=== PATIENT | male | born 1960 | race Caucasian/White ===

== ENCOUNTER → 2017-10-28 | Outpatient (CLI) | payer OTHER ==
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
== END | disposition home or self-care (01) ==
LOC: RADCTMAIN 14:05
PROVIDERS: ATTEND Family Medicine
DX: S09.90XA Unspecified injury of head, initial encounter (principal)
CPT/HCPCS: 70450

== ENCOUNTER 2018-04-25 17:41 | Emergency (ER) | payer OTHER ==
[2018-04-25] MEDS ORDERED: SODIUM CHLORIDE 0.9% 500 ML IV STA (17:52)
[2018-04-25] MEDS ORDERED: DIPH,PERTUS(ACELL)TETVAC-LF 0.5 ML VIAL IM ONE (17:52)
[2018-04-25] MEDS ORDERED: SODIUM CHLORIDE 0.9% 1,000 ML IV STA ×2 (17:52)
[2018-04-25] MEDS ORDERED: ONDANSETRON 4 MG/2 ML VIAL IVP STA (17:52)
[2018-04-25 17:53] VITALS: TEMP 98
[2018-04-25] MEDS ORDERED: ceFAZolin IN SWFI 2 GM/20 ML SYRINGE IVP STA (17:53)
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
[2018-04-25 18:21] LABS: Basophils # (A) 0.1 k/uL (0-0.2); Basophils % (A) 1 %; Eosinophils # (A) 0.1 k/uL (0-0.7); Eosinophils % (A) 2 %; HCT 41.5 % (39.0-53.0); HGB 13.8 gm/dL (13.0-17.5); Lymphocytes # (A) 2.4 k/uL (1.0-4.8); Lymphocytes % (A) 32 %; MCH 30.6 pg (25.0-35.0); MCHC 33.3 g/dL (31.0-37.0); MCV 91.8 fL (80.0-100.0); Mean Platelet Volume 7.1; Monocytes # (A) 0.4 k/uL (0-1.0); Monocytes % (A) 5 %; Neutrophils # (A) 4.5 k/uL (1.3-7.7); Neutrophils % (A) 59 %; Platelet Count 232 k/uL (150-450); RBC 4.52 m/uL (4.30-5.90); RDW 11.9 % (11.5-15.5); WBC 7.6 k/uL (3.8-10.6)
[2018-04-25 18:30] LABS: ALT 30 U/L (21-72); AST 22 U/L (17-59); Albumin 3.5 g/dL (3.5-5.0); Alcohol <10 mg/dL; Alkaline Phosphatase 69 U/L (38-126); Anion Gap 10 mmol/L; Blood Urea Nitrogen 24 mg/dL (9-20); Carbon Dioxide 26 mmol/L (22-30); Chloride 105 mmol/L (98-107); Glucose 119 mg/dL (74-99); Potassium 4.2 mmol/L (3.5-5.1); Sodium 141 mmol/L (137-145); Total Bilirubin 0.9 mg/dL (0.2-1.3); Total Protein 5.9 g/dL (6.3-8.2)
[2018-04-25 18:34] LABS: Creatine Kinase 94 U/L (55-170)
[2018-04-25 18:37] LABS: INR 1.1 (<1.2); Prothrombin Time 10.6 sec (9.0-12.0)
[2018-04-25 18:39] LABS: Partial Thromboplastin Time 20.9 sec (22.0-30.0)
[2018-04-25 18:47] LABS: Creatine Kinase MB 1.4 ng/mL (0.0-2.4); Troponin I <0.012 ng/mL (0.000-0.034)
[2018-04-25] MEDS ORDERED: MORPHINE SULFATE 4 MG/ML SYRINGE IVP STA (19:31)
[2018-04-25 19:36] VITALS: BP 139/71; PULSE 69; RESP 16
== END 2018-04-25 19:59 | disposition short-term general hospital (02) ==
LOC: EC 17:41
DX: S62.635B Displaced fracture of distal phalanx of left ring finger, initial encounter for open fracture (principal); S62.615B Displaced fracture of proximal phalanx of left ring finger, initial encounter for open fracture; Z79.51 Long term (current) use of inhaled steroids; Z23 Encounter for immunization; Z53.8 Procedure and treatment not carried out for other reasons; W34.09XA Accidental discharge from other specified firearms, initial encounter; Y93.89 Activity, other specified
CPT/HCPCS: 99291; 96374; 96375; 96361 ×2; 90471; 36415; 93005; 86900; 86901; 80053; 82550; 82553; 84484; 85025; 85610; 85730; 86850; 80320; 73130; 90715; J2270; J0690

== ENCOUNTER → 2019-04-07 | Outpatient (CLI) | payer OTHER ==
--- NOTE | 2019-04-07 10:27 | XR ---
EXAMINATION TYPE: XR cervical spine limited DATE OF EXAM: 04/07/2019 TECHNIQUE: Frontal and lateral views of the cervical spine were obtained as well as odontoid view HISTORY: M54.2 Cervicalgia neck pain x6 weeks with frequent headaches COMPARISON: None FINDINGS: The cervical spine is visualized in its entirety from C1 thru the top of T1 level, it is s atisfactory in alignment without evidence of acute fracture or dislocation. Small anterior osteophyt es are seen at C5-C6 and C6-C7 similar to the prior 03/16/2014. The pre-vertebral soft tissue appears within normal limits. The C1-C2 articulation is within normal limits on the open mouth view. IMPRESSION: No acute fracture or malalignment is seen in the cervical spine. Mild multilevel degener ative disc disease from C5 through C7 similar in degree to the prior 2013.
== END | disposition home or self-care (01) ==
LOC: RADXRMAIN 09:35
PROVIDERS: ATTEND Family Medicine
DX: M50.322 Other cervical disc degeneration at C5-C6 level (principal)
CPT/HCPCS: 72040

== ENCOUNTER → 2019-06-18 | Outpatient (CLI) | payer OTHER ==
--- NOTE | 2019-06-18 11:57 | US ---
EXAMINATION TYPE: US venous doppler duplex LE LT DATE OF EXAM: 06/18/2019 11:36 AM COMPARISON: NONE CLINICAL HISTORY: I80.9 Phlebitis and thrombophlebitis left leg. Left knee surgery 06/11/19, bursitis left knee. Edema left lower leg SIDE PERFORMED: Left TECHNIQUE: The lower extremity deep venous system is examined utilizing real time linear array sonog shaq with graded compression, doppler sonography and color-flow sonography. VESSELS IMAGED: External Iliac Vein (EIV) Common Femoral Vein Deep Femoral Vein Greater Saphenous Vein * Femoral Vein Popliteal Vein Small Saphenous Vein * Proximal Calf Veins (* superficial vessels) Left Leg: No evidence of DVT IMPRESSION: No evidence for DVT.
== END | disposition home or self-care (01) ==
LOC: RADUSWWP 11:12
PROVIDERS: ATTEND Orthopaedic Surgery
DX: M25.562 Pain in left knee (principal); M70.42 Prepatellar bursitis, left knee; I80.9 Phlebitis and thrombophlebitis of unspecified site; Z87.891 Personal history of nicotine dependence

== ENCOUNTER → 2021-01-11 | Outpatient (CLI) | payer OTHER ==
--- NOTE | 2021-01-11 10:56 | XR ---
EXAM TYPE: LUMBAR SPINE X RAY SERIES COMPARISON: NONE HISTORY: Low back pain TECHNIQUE: 4 views are submitted. FINDINGS: Alignment is anatomic. The pedicles are intact. The transverse processes are intact. There is slig ht anterolisthesis L5 on S1 with facet arthropathy. Multilevel mild degenerative disc disease and hyp ertrophic changes predominantly involving the thoracolumbar junction and upper lumbar spine. IMPRESSION: 1. Multilevel hypertrophic and degenerative changes. 2. Facet arthropathy with grade 1 anterolisthesis L5 on S1.
== END | disposition home or self-care (01) ==
LOC: RADXRMAIN 10:09
PROVIDERS: ATTEND Family Medicine
DX: M47.816 Spondylosis without myelopathy or radiculopathy, lumbar region (principal); M43.17 Spondylolisthesis, lumbosacral region
CPT/HCPCS: 72110

== ENCOUNTER → 2021-11-06 | Outpatient (CLI) | payer OTHER ==
--- NOTE | 2021-11-07 08:46 | XR ---
EXAM TYPE: LUMBAR SPINE X RAY SERIES COMPARISON: 01/11/2021 HISTORY: Pain TECHNIQUE: 4 views are submitted. FINDINGS: Alignment is anatomic. The pedicles are intact. The transverse processes are intact. There is ther e is multilevel hypertrophic and degenerative change of the spine with grade 1 anterolisthesis L5 on S1. Severe facet arthropathy L5-S1. Diffuse osteopenia. Extensive retained fecal debris within the ri ght colon. IMPRESSION: 1. Diffuse osteopenia with multilevel moderate degenerative disc disease. Severe facet arthropathy L5 -S1 with probable foraminal encroachment and grade 1 anterolisthesis. Follow-up MRI recommended. 2. Correlate for constipation.
== END | disposition home or self-care (01) ==
LOC: RADXRMAIN 16:30
PROVIDERS: ATTEND Nurse Practitioner Family
DX: M51.36 Other intervertebral disc degeneration, lumbar region (principal); M47.817 Spondylosis without myelopathy or radiculopathy, lumbosacral region; M85.88 Other specified disorders of bone density and structure, other site; M43.16 Spondylolisthesis, lumbar region
CPT/HCPCS: 72110

== ENCOUNTER → 2024-05-13 | Outpatient (CLI) | payer OTHER ==
--- NOTE | 2024-05-13 09:26 | US ---
EXAMINATION TYPE: US abdomen limited DATE OF EXAM: 05/13/2024 COMPARISON: NONE CLINICAL INDICATION: Male, 63 years old with history of K42.9 UMBILICAL HERNIA WITHOUT OBSTRUCTION OR GANG; Lump above umbilicus. TECHNIQUE: Grayscale with or without color Doppler imaging of the area of hernia concern. Real-time scanning was performed by the [employer] utilizing Valsalva and additional dynamic maneuve rs to assess for hernia. Images of the contralateral side were also acquired for direct comparison. FINDINGS: Outpouching of fatty contents to the abdominal wall noted superior to the umbilicus. Assess for hernia at location of: Above umbilicus. IMPRESSION: Ventral wall hernia containing fat. [facility], , 05/13/2024 9:24 AM
== END | disposition home or self-care (01) ==
LOC: RADUSWWP 07:11
PROVIDERS: ATTEND Family Medicine
CPT/HCPCS: 76705

== ENCOUNTER → 2024-10-12 | Outpatient (CLI) | payer OTHER ==
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
== END | disposition home or self-care (01) ==
LOC: RADCTMAIN 12:44
PROVIDERS: ATTEND Orthopaedic Surgery
DX: M47.26 Other spondylosis with radiculopathy, lumbar region (principal); M51.16 Intervertebral disc disorders with radiculopathy, lumbar region; M48.061 Spinal stenosis, lumbar region without neurogenic claudication; M99.73 Connective tissue and disc stenosis of intervertebral foramina of lumbar region
CPT/HCPCS: 72131

== ENCOUNTER → 2024-11-11 | Outpatient (CLI) | payer OTHER ==
[2024-11-11 13:20] VITALS: BP 143/85; PULSE 93; RESP 16
--- NOTE | 2024-11-11 13:51 | P.PAINCN ---
History of Present Illness - History of Present Illness This is a 64-year-old pleasant gentleman who has been having low back pain for many years which is gradually getting worse for the last 1 year. No history of trauma or accident. Pain is located mostly in the low back and going down to bilateral lower extremity up to calf area. He describes his the pain as intermittent and sharp in character. Intensity goes up to 9/10. Getting up from sitting position hurts him the most. Medication makes his pain in little tolerable. Denies any motor weakness. Denies any sensory dysfunction. Denies any bowel bladder dysfunction. Patient had epidural steroid injections done more than a year ago without significant improvement in another facility. Patient is going through physical therapy. Medication mckinnon taking tramadol, gabapentin, Flexeril, trazodone. Past Medical History Past Medical History: Hearing Disorder / Deafness Additional Past Medical History / Comment(s): Deaf in right ear. History of Any Multi-Drug Resistant Organisms: None Reported Past Surgical History: Orthopedic Surgery Additional Past Surgical History / Comment(s): Sinus surgery, left hand surgery, colonoscopy X2-3, polypectomy with first colonoscopy. Past Anesthesia/Blood Transfusion Reactions: No Reported Reaction Smoking Status: Former smoker - Past Family History Sister(s) Family Medical History: Cancer Additional Family Medical History / Comment(s): Breast cancer. Medications and Allergies Home Medications Medication Instructions Recorded Confirmed Type Fluticasone Propionate [Flonase 2 spray NASAL QAM 12/06/14 11/11/24 History Allergy Relief] Cyclobenzaprine [Flexeril] 10 mg PO TID PRN 09/18/22 11/11/24 History Diclofenac Potassium [Cataflam] 50 mg PO TID PRN 09/18/22 11/11/24 History LORazepam [Ativan] 0.5 mg PO BID PRN 09/18/22 11/11/24 History Gabapentin [Neurontin] 300 mg PO TID 11/11/24 11/11/24 History amLODIPine [Norvasc] 10 mg PO DAILY 11/11/24 11/11/24 History hydroCHLOROthiazide 12.5 mg PO DAILY 11/11/24 11/11/24 History traMADol HCL 50 mg PO Q6H 11/11/24 11/11/24 History traZODone HCL [Desyrel] 50 mg PO HS 11/11/24 11/11/24 History Allergies Allergy/AdvReac Type Severity Reaction Status Date / Time No Known Allergies Allergy Verified 09/21/22 10:20 Physical Exam Vitals: Vital Signs Pulse Resp BP Pulse Ox 11/11/24 13:18 93 16 143/85 94 L Intake and Output 11/10/24 11/11/24 11/11/24 22:59 06:59 14:59 Other: Weight 90.718 kg Physical Examinations : -Constitutiona : Cooperative , not in acute distress . -HEENT : nech : supple , no Lymphadenopathy , normal thyroid size . : eyes : no ptosis , no icterus, no photophobia . - neurologic : Cranial nerve II to XII intact , no focal neurological deffecit . -psychatric : alert , oriented X 3 , appropriate affect , intact judgment and insight . -Lymphatic : no Lymphadenopathy . - musculoskeltal : C Lumber spine moter stegnth lower extremities ,thigh and legs 5/5 Right side , 5/5 Left side deep tendon reflexes : normal Knee Jerk , normal ankle Jerk lumber facet Loading Test =positive Right , positive Left On deep palpation tenderness in the midline and paraspinal areas. Range of motion of the lumbar spine Flexion normal limit. Extension causes increased pain. Rotation causes increased pain. strait leg raising test negative bilaterally. Fabere test= positive deep.. tenderness over the Sacroiliac joint mild. Gaenslen test= negative. Sacroiliac compression test negative. Results Results: Results of lumbar CT scan reviewed. Assessment and Plan Assessment: Assessment. Lumbar facet joint arthropathy. Lumbar spine spondylosis. Mild lumbar spine stenosis. Plan. Will schedule for bilateral L4-5, L5-S1 facet joint medial branch diagnostic block. Discussed the treatment, alternatives, complications which may include infection bleeding nerve damage paralysis and aggravation of pain all of which could be permanent. Patient understands and all questions were answered. PQRS Measure Charge Sheet Mode of Arrival: Ambulatory - Pain Location Bilateral Lower Back Pharmacological Interventions: Block, Epidural, PRN Medication, Scheduled Medication, Topical Medication PQRS Narrative: Smoking Status Never smoker Blood Pressure 143/85 Pain Intensity [Bilateral 9 Lower Back] Scale Used Numeric (1 - 10) Hx Alcohol Use (MH) No Home Medications: Ambulatory Orders Fluticasone Propionate [Flonase Allergy Relief] 2 spray NASAL QAM 12/06/14 Cyclobenzaprine [Flexeril] 10 mg PO TID PRN 09/18/22 Diclofenac Potassium [Cataflam] 50 mg PO TID PRN 09/18/22 LORazepam [Ativan] 0.5 mg PO BID PRN 09/18/22 Gabapentin [Neurontin] 300 mg PO TID 11/11/24 amLODIPine [Norvasc] 10 mg PO DAILY 11/11/24 hydroCHLOROthiazide 12.5 mg PO DAILY 11/11/24 traMADol HCL 50 mg PO Q6H 11/11/24 traZODone HCL [Desyrel] 50 mg PO HS 11/11/24
== END ==
LOC: PNWHC3 12:50
PROVIDERS: ATTEND Anesthesiology
DX: M47.26 Other spondylosis with radiculopathy, lumbar region (principal); M48.061 Spinal stenosis, lumbar region without neurogenic claudication
CPT/HCPCS: 99211

== ENCOUNTER 2024-12-03 06:01 | Day surgery (SDC) | payer OTHER ==
[2024-12-03] MEDS: IV FLUID CONTINUATION 1,000 ML IV ONE ×2 (06:27→07:28)
[2024-12-03 06:28] VITALS: TEMP 96.5
[2024-12-03] MEDS: LACTATED RINGERS 1,000 ML IV SCH (06:31)
[2024-12-03] MEDS ORDERED: ROPIVACAINE 5 MG/ML 30 ML VIAL ONE (07:09)
[2024-12-03] MEDS ORDERED: MIDAZOLAM 2 MG/2 ML VIAL ONE (07:09)
[2024-12-03] MEDS ORDERED: fentaNYL (PF) 50 MCG/ML 2 ML AMP ONE (07:09)
--- NOTE | 2024-12-03 07:25 | P.PCN ---
Date of Procedure: 12/03/24 Procedure(s) Performed: PREOPERATIVE DIAGNOSIS : 1- Lumbar spondylosis with Facet Arthropathy without myelopathy . 2- Lumber degenerative disc disease POSTOPERATIVE DIAGNOSIS: 1- Lumbar spondylosis with Facet Arthropathy without myelopathy . 2- Lumber degenerative disc disease PROCEDURE: Diagnostic bilateral L3 , L4 , and L5 medial branch block under fluoroscopy guidance(fluoroscopy images available in the radiology Department ) ( To target the facet joint between Bilateral L4-5 , and L5-S1 )#1st ANESTHESIA: moderate sedation with intravenous Versed 2 mg and Fentanyl 100 mcg.(Sedation start time 07:09, end time 07:20 ) EBL: Minimal COMPLICATION: None PROCEDURE INDICATION: Chronic low back pain secondary to Facet arthropathy unresponsive to conservative treatment. PROCEDURE DESCRIPTION: the patient was seen and identified in the preop holding area , risks and benefits and possible complications of the procedure and alternative were discussed with the patient, and the patient agreed to proceed with the procedure and signed the consent and vital signs monitored during the procedure and fluoroscopy was used to maximize the benefit and accuracy of the needle placement, and sedation was given to decrease patient anxiety, patient was taken to the procedure room and placed in prone position vital signs monitored in the back prepped with chlorhexidine X3 then under strict sterile technique using a right oblique fluoroscopy ,the junction of the transverse process and the superior articulating process of the right L3 , L4 , and L5 vertebra which corresponding to the fluoroscopy image of the eye of the Elijah dog on the block side for the medial branches and subsequently , after local infiltration of skin and subcu tissuies with Ropivacaine 0.5 % , one mL at each level ,then 23-gauge Quincke-type needles , 3 needle was used , each one of them placed at the junction of the base of the transverse process and the superior articular process at the appropriate level, and the needle was advanced until the periosteum contacted, needle placement confirmed with AP oblique and lateral view and after appropriate needle placement confirmed, and after negative aspiration for heme and CSF and there was no paresthesia 1-1/2 mL of Ropivacaine 0.5% , then half mL injected at each level after negative aspiration the needle subsequently removed and the same procedure repeated for the left side at left side at L3 , L4 and L5 levels. At the end of the procedure and the needles removed and a bandage applied after the skin was cleaned the cleaning solution patient taken to recovery room in stable condition and monitors in the recovery room for 20-30 minutes and discharged home in stable condition after discharge criteria met and patient will follow up with the pain clinic in 2-4 weeks
[2024-12-03 07:46] VITALS: BP 125/75; PULSE 67; RESP 18
--- NOTE | 2024-12-03 07:55 | FL ---
EXAMINATION TYPE: FL guided pain mgmt statistic DATE OF EXAM: 12/03/2024 CLINICAL INDICATION: Male, 64 years old with history of Hans Lumbar Facet; PHH, pain TECHNIQUE: Fluoroscopy. COMPARISON: None. FINDINGS: Fluoroscopic guidance was provided during pain relief procedure performed by Dr. Tapia . A total of 19.5 seconds of fluoroscopic time was utilized during the procedure and 4 images are ac quired. Image acquired shows needle localization at several levels in the lower lumbar spine. Degeneration changes of the visualized joints. Total DAP: 0.72096 mGym2. IMPRESSION: As Above. [facility], , 12/03/2024 7:53 AM
== END 2024-12-03 07:59 | disposition home or self-care (01) ==
LOC: ORPAIN 06:01
PROVIDERS: ATTEND Specialist
DX: M47.816 Spondylosis without myelopathy or radiculopathy, lumbar region (principal); M51.369 Other intervertebral disc degeneration, lumbar region without mention of lumbar back pain or lower extremity pain
CPT/HCPCS: 64493; 64494; J2250; J3010; J2795; 99152

== ENCOUNTER → 2025-02-23 | Outpatient (CLI) | payer OTHER | END | disposition home or self-care (01) | LOC: LABPAT 11:55 | PROVIDERS: ATTEND Orthopaedic Surgery | DX: Z01.812 Encounter for preprocedural laboratory examination (principal); Z22.322 Carrier or suspected carrier of Methicillin resistant Staphylococcus aureus; M48.061 Spinal stenosis, lumbar region without neurogenic claudication; M43.16 Spondylolisthesis, lumbar region | CPT/HCPCS: 86850; 86900; 86901; 87070 ==